=== PATIENT | female | born 1980 | race Two or more races ===

== ENCOUNTER → 2024-12-04 | Outpatient (CLI) | payer BC, SELFPAY ==
--- NOTE | 2024-12-04 09:00 | XR_ITS ---
Examination: Breast ultrasound complete, bilateral Date and time of exam: November 2024 0928 hrs. Indications: History stereotactic breast biopsy June 20, 2024, negative Technique: Real-time grayscale ultrasonographic imaging bilateral breasts, including all 4 quadrants as well as nipple retroareolar and axillary regions. Findings: 2:00 cyst 7 x 6 mm 22 mm right axillary lymph node Impression: BI-RADS Category 2: Benign findings
--- NOTE | 2024-12-04 10:00 | XR_ITS ---
Examination: Diagnostic digital mammography, bilateral Computer aided detection 3-D breast Tomosynthesis, bilateral Date and time of exam: 12/04/2024, 9:46 AM Comparisons: February 2022 through May 2024 Indications:Follow-up evaluation of probably benign focal asymmetry right breast Technique: Nonmagnified MLO, CC views of the breasts to been obtained, reconstructed from 3-D Tomosynthesis images. R2 computer aided detection program utilized for evaluation of suspicious masses and/or abnormal calcifications. 3-D Tomosynthesis images obtained. Findings: The breasts are heterogeneously dense, which may obscure small masses. Asymmetry central upper right breast at approximately 12:00 unchanged from prior exam. Stable as. Otherwise, no evidence of abnormal masses or suspicious calcifications. Impression: Persistent asymmetry 12:00 right breast. BI-RADS category 3: Probably benign, short term follow-up
== END | disposition home or self-care (01) ==
LOC: CDIM 09:15
PROVIDERS: PCP Internal Medicine; Referring Provider Surgery; Visit Provider Surgery
DX: R92.333 Mammographic heterogeneous density, bilateral breasts (principal); N64.89 Other specified disorders of breast
CPT/HCPCS: 76641; 77062; 77066; G0279

== ENCOUNTER → 2025-06-20 | Outpatient (CLI) | payer BC, SELFPAY ==
--- NOTE | 2025-06-20 11:45 | XR_ITS ---
Examination: Diagnostic digital mammography, unilateral, right Computer aided detection 3-D breast Tomosynthesis, unilateral Date and time of exam: June 20, 2025, 1133 hours INDICATIONS: Mammogram December 04, 2024 asymmetry central upper right breast 12:00 Technique: Nonmagnified MLO, CC views of the right breast have been obtained, reconstructed from 3-D Tomosynthesis images. R2 computer aided detection program utilized for evaluation of suspicious masses and/or abnormal calcifications. 3-D Tomosynthesis images obtained. Findings: The breast is heterogeneously dense, which may obscure small masses Focal asymmetry upper right breast in the 12:00 position again noted Impression: BI-RADS category 0: Incomplete: Need additional imaging evaluation Recommend repeat right breast sonography follow-up
== END | disposition home or self-care (01) ==
LOC: CDIM 11:25
PROVIDERS: PCP Internal Medicine; Referring Provider Surgery; Visit Provider Surgery
DX: R92.8 Other abnormal and inconclusive findings on diagnostic imaging of breast (principal)
CPT/HCPCS: 77061; 77065; G0279